=== PATIENT | female | born 2000 | race American Indian/Alaskan Native ===

== ENCOUNTER 2019-05-30 23:26 | Emergency (ER) | payer MEDICAID, OTHER ==
[2019-05-30 23:38] VITALS: BP 107/45
[2019-05-31] MEDS ORDERED: PEPCID IV ONE (00:14)
[2019-05-31] MEDS ORDERED: LIDOCAINE VISCOUS 2% PO ONE (00:14)
[2019-05-31] MEDS ORDERED: ALUM-MAG HYDROX-SIMETH 200-200-20MG/5ML PO ONE (00:14)
[2019-05-31] MEDS ORDERED: MORPHINE IV ONE (00:15)
[2019-05-31] MEDS ORDERED: ZOFRAN IV ONE (00:15)
[2019-05-31 00:31] LABS: Basophils % (Auto) 0.5 % (0.0-1.8); Eosinophils # (Auto) 0.1 K/mm3 (0.0-0.4); Eosinophils % (Auto) 1.8 % (0.0-4.3); Hematocrit 39.8 % (30.3-42.9); Hemoglobin 12.8 gm/dl (10.1-14.3); Lymphocytes # (Auto) 2.5 K/mm3 (1.2-5.4); Lymphocytes % (Auto) 30.6 % (13.4-35.0); Mean Corpuscular HGB Conc 32 % (30-34); Mean Corpuscular Volume 80 fl (79-97); Monocytes # (Auto) 0.4 K/mm3 (0.0-0.8); Monocytes % (Auto) 4.9 % (0.0-7.3); Platelet Count 154 K/mm3 (140-440); Red Cell Distribution Width 15.8 % (13.2-15.2)
[2019-05-31 00:42] LABS: Bilirubin,Urine NEG (Negative); Blood,Urine NEG (Negative); Color,Urine Yellow (Yellow); Mucus,Urine 1+ /HPF; Protein,Urine <15 mg/dL mg/dL (Negative); Urobilinogen,Urine < 2.0 mg/dL (<2.0)
[2019-05-31 00:58] LABS: Alanine Aminotransferase 16 units/L (7-56); BUN/Creatinine Ratio 8; Blood Urea Nitrogen 7 mg/dL (7-17); Calcium 8.9 mg/dL (8.4-10.2); Hemolysis Index 9
--- NOTE | 2019-05-31 01:54 | Emergency Department Report ---
ED Abdominal Pain HPI - General Chief Complaint: Abdominal Pain Stated Complaint: ABDOMINAL PAIN Time Seen by Provider: 05/31/19 00:00 Source: patient Mode of arrival: Ambulatory Limitations: No Limitations - History of Present Illness Initial Comments: Patient is a nulliparous 19-year-old -[place] female with a history of chronic gastric ulcers diagnosed 2 years ago presents to the ED with complaint of acute exacerbation of her chronic epigastric pain for the last 2 days after drinking liquor. Patient also complains of nausea. Patient denies dizziness, diarrhea, chest pain, shortness of breath, sore throat, dysuria, urinary frequency and urgency, vaginal bleeding, fever, chills, constipation, vaginal discharge or back pain. MD Complaint: abdominal pain -: Gradual, days(s) (2), year(s) (2) Location: epigastric Radiation: epigastric Migration to: no migration Severity: moderate Severity scale (0 -10): 6 Quality: cramping, aching, sharp, burning Consistency: constant Improves With: eating Worsens With: nothing Associated Symptoms: denies other symptoms, nausea. denies: vomiting, diarrhea, fever, chills, constipation, dysuria, hematemesis, hematochezia, melena, hematuria, anorexia, syncope - Related Data LMP Date: 05/17/19 Previous Rx's Medication Instructions Recorded Last Taken Type Dicyclomine [Bentyl] 20 mg PO Q6H PRN #30 tablet 05/31/19 Unknown Rx Omeprazole 40 mg PO DAILY #30 capsule. 05/31/19 Unknown Rx Ondansetron [Zofran Odt] 4 mg PO Q6HR #15 tab.jose 05/31/19 Unknown Rx Ranitidine HCl [Zantac] 150 mg PO Q12H #60 tablet 05/31/19 Unknown Rx Allergies Allergy/AdvReac Type Severity Reaction Status Date / Time No Known Allergies Allergy Unverified 05/30/19 23:30 ED Review of Systems ROS: Stated complaint: ABDOMINAL PAIN Other details as noted in HPI Constitutional: denies: chills, fever Eyes: denies: eye pain, eye discharge, vision change ENT: denies: ear pain, throat pain Respiratory: denies: cough, shortness of breath, wheezing Cardiovascular: denies: chest pain, palpitations Endocrine: no symptoms reported Gastrointestinal: abdominal pain, nausea. denies: diarrhea Genitourinary: denies: urgency, dysuria, discharge Musculoskeletal: denies: back pain, joint swelling, arthralgia Skin: denies: rash, lesions Neurological: denies: headache, weakness, paresthesias Psychiatric: denies: anxiety, depression Hematological/Lymphatic: denies: easy bleeding, easy bruising ED Past Medical Hx - Past Medical History Previous Medical History?: Yes Additional medical history: "h/o stomach ulcers; dx'd by a stomach specialist ". endoscopy 2016 - Surgical History Past Surgical History?: No - Social History Smoking Status: Never Smoker Substance Use Type: Marijuana - Medications Home Medications: Home Medications Medication Instructions Recorded Confirmed Last Taken Type Dicyclomine [Bentyl] 20 mg PO Q6H PRN #30 tablet 05/31/19 Unknown Rx Omeprazole 40 mg PO DAILY #30 capsule. 05/31/19 Unknown Rx Ondansetron [Zofran Odt] 4 mg PO Q6HR #15 tab.rapdis 05/31/19 Unknown Rx Ranitidine HCl [Zantac] 150 mg PO Q12H #60 tablet 05/31/19 Unknown Rx ED Physical Exam - General Limitations: No Limitations General appearance: alert, in no apparent distress - Head Head exam: Present: atraumatic, normocephalic, normal inspection - Eye Eye exam: Present: normal appearance, PERRL, EOMI Pupils: Present: normal accommodation - ENT ENT exam: Present: normal exam, normal orophraynx, mucous membranes moist, TM's normal bilaterally, normal external ear exam - Neck Neck exam: Present: normal inspection, full ROM - Respiratory Respiratory exam: Present: normal lung sounds bilaterally. Absent: respiratory distress, wheezes, rales, rhonchi, chest wall tenderness, accessory muscle use, decreased breath sounds, prolonged expiratory - Cardiovascular Cardiovascular Exam: Present: normal rhythm, bradycardia, normal heart sounds. Absent: systolic murmur, diastolic murmur, rubs, gallop - GI/Abdominal GI/Abdominal exam: Present: soft, tenderness (mildly tender epigastric area), n ormal bowel sounds. Absent: distended, guarding, rebound, hyperactive bowel sounds, hypoactive bowel sounds, organomegaly, mass - Rectal Rectal exam: Present: deferred - Extremities Exam Extremities exam: Present: normal inspection, full ROM, normal capillary refill - Back Exam Back exam: Present: normal inspection, full ROM. Absent: tenderness, CVA tenderness (L), muscle spasm, vertebral tenderness - Neurological Exam Neurological exam: Present: alert, oriented X3, CN II-XII intact, normal gait, reflexes normal - Psychiatric Psychiatric exam: Present: normal affect, normal mood - Skin Skin exam: Present: warm, dry, intact, normal color. Absent: rash ED Course Vital Signs 05/30/19 23:31 Temperature 97.9 F Pulse Rate 51 L Respiratory 18 Rate Blood Pressure 107/45 O2 Sat by Pulse 100 Oximetry - Reevaluation(s) Reevaluation #1: 05/31/19 01:59 Patient is alert and oriented 3 and is not in distress. Vital signs are stable. Patient was treated for pain and nausea in the ED, also given antacids. Patient lab test results are unremarkable upon review. On reevaluation, patient's pain is well controlled, patient resting comfortably and sleeping in the room in no distress. Patient discharged home on antacids and pain medications and advised to follow-up with her primary care physician in 3-5 days for reevaluation or return to the ED immediately if symptoms get worse. ED Medical Decision Making - Lab Data Result diagrams: 05/31/19 00:14 05/31/19 00:14 - Medical Decision Making Patient is alert and oriented 3 and is not in distress. Vital signs are stable. Patient was treated for pain and nausea in the ED, also given antacids. Patient lab test results are unremarkable upon review. On reevaluation, patient's pain is well controlled, patient resting comfortably and sleeping in the room in no distress. Patient discharged home on antacids and pain medications and advised to follow-up with her primary care physician in 3-5 days for reevaluation or return to the ED immediately if symptoms get worse. - Differential Diagnosis abdominal pain; Gastritis, Gastric ulcers, alcoholic gastritis, GERD Critical care attestation.: If time is entered above; I have spent that time in minutes in the direct care of this critically ill patient, excluding procedure time. ED Disposition Clinical Impression: Abdominal pain, epigastric GERD (gastroesophageal reflux disease) Qualifiers: Esophagitis presence: without esophagitis Qualified Code(s): K21.9 - Gastro- esophageal reflux disease without esophagitis Chronic gastric ulcer Qualifiers: Gastric ulcer complication status: without hemorrhage or perforation Qualified Code(s): K25.7 - Chronic gastric ulcer without hemorrhage or perforation Disposition: TO HOME OR SELFCARE Is pt being admited?: No Does the pt Need Aspirin: No Condition: Stable Instructions: Abdominal Pain (ED), Gastroesophageal Reflux Disease (ED), Gastritis (ED) Additional Instructions: Take medications with food, drink plenty of fluids, and follow up with your Primary Care Physician in 5-7 days for reevaluation. Avoid Alcohol consumption. Return to the ED immediately if symptoms get worse. Prescriptions: Dicyclomine [Bentyl] 20 mg PO Q6H PRN #30 tablet PRN Reason: Pain , Severe (7-10) Omeprazole 40 mg PO DAILY #30 capsule. Ranitidine HCl [Zantac] 150 mg PO Q12H #60 tablet Ondansetron [Zofran Odt] 4 mg PO Q6HR #15 tab.rapdis Referrals: ABENA VAZQUEZ MD [Primary Care Provider] - 3-5 Days Time of Disposition: 01:52 Print Language: GUAMANIAN
== END 2019-05-31 03:04 | disposition home or self-care (01) ==
LOC: ED 23:26
DX: K21.9 Gastro-esophageal reflux disease without esophagitis (principal); K25.7 Chronic gastric ulcer without hemorrhage or perforation; F12.10 Cannabis abuse, uncomplicated; Z79.899 Other long term (current) drug therapy
CPT/HCPCS: 36415; 80053; 81001; 84703; 85025; 96374; 96375; 99283; J2270; J2405